=== PATIENT | female | born 1970 | race Caucasian/White ===

== ENCOUNTER 2017-07-26 12:18 | Inpatient (IN) | payer OTHER ==
[2017-07-26 13:25] VITALS: BMI 13.9
--- NOTE | 2017-07-26 16:41 | HP ---
Admission [facility] Chief Complaint: I WANT TO GO TO REHAB Allergies/Adverse Reactions: Allergies Allergy/AdvReac Type Severity Reaction Status Date / Time Penicillins Allergy Severe Rash Verified 07/26/17 14:27 sulfamethoxazole Allergy Severe Itching Verified 07/26/17 14:27 [From Bactrim] trimethoprim [From Bactrim] Allergy Severe Itching Verified 07/26/17 14:27 History of Present Illness: 47 YEARS OLD FEMALE WITH LONG HISTORY OF OPIATE NICOTINE COCAINE DEPENDENCE HAS ASTHMA COPD HIV HEAT RASHES ON UPPER CHEST WALL WEIGHT LOSS AMBULATE WITH CANE AND ANXIETY DISORDER IS ADMITTED TO REHAB Exam Limitations: No Limitations - Ebola screening Have you traveled outside of the country in the last 21 days: No Have you had contact with anyone from an Ebola affected area: No Have you been sick,other than usual withdrawal symptoms: No Do you have a fever: No - Review of Systems Constitutional: Loss of Appetite, Unintentional Wgt. Loss, Unexplained wgt Loss EENT: reports: Blurred Vision (EYE GLASSES AT HOME), Dental Problems (UPPER AND LOWER DENTURE AT HOME) Respiratory: reports: No Symptoms reported Cardiac: reports: No Symptoms Reported GI: reports: Poor Appetite : reports: No Symptoms Reported Musculoskeletal: reports: Muscle Pain (LEGS) Integumentary: reports: Rash (UPPER CHEST WALL) Neuro: reports: No Symptoms reported Endocrine: reports: No Symptoms Reported Hematology: reports: No Symptoms Reported Psychiatric: reports: Judgement Intact, Orientated x3, Anxious Other Systems: Reviewed and Negative Patient History - Patient Medical History Hx Anemia: No Hx Asthma: Yes Hx Chronic Obstructive Pulmonary Disease (COPD): Yes Hx Cancer: No Hx Cardiac Disorders: No Hx Congestive Heart Failure: No Hx Hypertension: No Hx Hypercholesterolemia: No Hx Pacemaker: No HX Cerebrovascular Accident: No Hx Seizures: No Hx Dementia: No Hx Diabetes: No Hx Gastrointestinal Disorders: No Hx Liver Disease: No Hx Genitourinary Disorders: No Hx Sexually Transmitted Disorders: No Hx Renal Disease (ESRD): No Hx Thyroid Disease: No Hx Human Immunodeficiency Virus (HIV): Yes (since 1990 on med) Hx Hepatitis C: Yes (treated) Hx Depression: Yes Hx Suicide Attempt: No Hx Bipolar Disorder: No Hx Schizophrenia: No - Patient Surgical History Past Surgical History: Yes Hx Neurologic Surgery: No Hx Cataract Extraction: No Hx Cardiac Surgery: No Hx Lung Surgery: No Hx Breast Surgery: No Hx Breast Biopsy: No Hx Abdominal Surgery: No Hx Appendectomy: No Hx Cholecystectomy: No Hx Genitourinary Surgery: No Hx Section: Yes (1987 &1989) Hx Orthopedic Surgery: No Hx Hysterectomy: No Other Surgical History: 1990 tubal ligation Anesthesia Reaction: No - PPD History Previous Implant?: Yes Documented Results: Negative w/proof Implanted On Prior [facility] Admission?: Yes Date: 09/22/16 PPD to be Administered?: No - Reproductive History Patient is a Female of Child Bearing Age (11 -55 yrs old): Yes Last Menstrual Period: 07/07/17 Patient : No - Smoking Cessation Smoking history: Current every day smoker Have you smoked in the past 12 months: Yes Aproximately how many cigarettes per day: 3 Cigars Per Day: 0 Hx Chewing Tobacco Use: No Initiated information on smoking cessation: Yes 'Breaking Loose' booklet given: 07/26/17 - Substance & Tx. History Hx Alcohol Use: No Hx Substance Use: Yes Substance Use Type: Heroin Hx Substance Use Treatment: Yes (11/2016 [facility]) - Substances Abused Crack Route: Smoking Frequency: Daily Amount used: $100 Age of first use: 18 Date of Last Use: 07/12/17 Heroin Route: Inhalation Frequency: Daily Amount used: 4-5 bags Age of first use: 21 Date of Last Use: 07/12/17 Family Disease History - Family Disease History Family Disease History: Heart Disease: Mother, Other: Father (NO CONTACT), Brother (HIV) Admission Physical Exam [facility] - Vital Signs Vital Signs: Vital Signs - 24 hr 07/26/17 13:21 Temperature 97.4 F L Pulse Rate 73 Respiratory 20 Rate Blood Pressure 106/77 - Physical General Appearance: Yes: No Apparent Distress, Appropriately Dressed, Thin HEENTM: Yes: Hearing grossly Normal, Normal ENT Inspection, Normocephalic, Normal Voice, Other (MULTIPLE TEETH MISSING) Respiratory: Yes: Chest Non-Tender, No Respiratory Distress, No Accessory Muscle Use, Wheezing, Hyperresonant, Inspiration Neck: Yes: Supple, Trachea in good position Breast: Yes: Breasts Symetrical Cardiology: Yes: Regular Rhythm, Regular Rate, S1, S2 Abdominal: Yes: Normal Bowel Sounds, Non Tender, Soft Genitourinary: Yes: Within Normal Limits Back: Yes: Normal Inspection Musculoskeletal: Yes: full range of Motion, Gait Steady (CANE), Muscle weakness (BOTH LEGS) Extremities: Yes: Normal Inspection, Normal Range of Motion, Non-Tender, Other ( WEAKNESS OF BOTH LEGS) Neurological: Yes: Fully Oriented, Alert, Normal Response, Depressed Affect, Other (WEAKNESS OF BOTH LEGS) Integumentary: Yes: Dry, Warm, Rash (UPPER CHEST WALL), Other (MULTIPLE SKIN ABRASION ON BOTH LEGS) Lymphatic: Yes: Within Normal Limits - Diagnostic (1) Bipolar I disorder Current Visit: Yes Status: Suspected (2) HIV disease Current Visit: Yes Status: Chronic (3) Hepatitis C Current Visit: Yes Status: Chronic Qualifiers: Viral hepatitis chronicity: carrier Qualified Code(s): B18.2 - Chronic viral hepatitis C (4) Nicotine dependence Current Visit: Yes Status: Acute Qualifiers: Nicotine product type: cigarettes Substance use status: in withdrawal Qualified Code(s): F17.213 - Nicotine dependence, cigarettes, with withdrawal (5) Weight decrease Current Visit: Yes Status: Acute (6) Cocaine dependence, uncomplicated Current Visit: Yes Status: Chronic (7) Methadone maintenance therapy patient Current Visit: Yes Status: Chronic Comment: 40 MG VERIFICATION PENDING (8) Asthma Current Visit: Yes Status: Chronic Qualifiers: Asthma severity: mild persistent Asthma complication type: with status asthmaticus Qualified Code(s): J45.32 - Mild persistent asthma with status asthmaticus (9) COPD (chronic obstructive pulmonary disease) Current Visit: Yes Status: Chronic Qualifiers: COPD type: emphysema Emphysema type: unilateral Qualified Code(s ): J43.0 - Unilateral pulmonary emphysema [MacLeod's syndrome] (10) Acneiform rash Current Visit: Yes Status: Chronic (11) Use of cane as ambulatory aid Current Visit: Yes Status: Chronic (12) Muscle spasm Current Visit: Yes Status: Chronic (13) Dry skin Current Visit: Yes Status: Chronic (14) Abrasion of skin Current Visit: Yes Status: Acute Comment: LOWER EXTREMITIES Cleared for Admission S - Detox or Rehab [facility] Level of Care: Observation Bed Detox Regimen/Protocol: Not Applicable Claeared for Rehab Admission: Yes [facility] Breath Alcohol Content Breath Alcohol Content: 0 Urine Pregancy Test - Result Urine Test Results: Negative- NO Line Present Urine Drug Screen - Control Is Test Valid: Yes - Results Drug Screen Negative: No Urine Drug Screen Results: MTD-Methadone Inpatient Rehab Admission - Initial Determination Are CD services needed?: Yes Free of communicable disease: Yes Not in need of hospitalization: Yes - Rehab Admission Criteria Previous failed treatment: Yes Poor recovery environment: Yes Comorbidities: Yes Lacks judgement: No Patient is meeting Inpatient Rehab admission criteria:: Yes
[2017-07-26] MEDS ORDERED: MAGNESIUM HYDROX 2400MG/30ML ORAL SUSPENSION 30 ML CUP PO PRN (16:47)
[2017-07-26] MEDS ORDERED: ACETAMINOPHEN 325 MG TABLET (FP) PO PRN (16:47)
[2017-07-26] MEDS ORDERED: MENTHOL/PHENOL 1 EACH UD MM PRN (16:47)
[2017-07-26] MEDS ORDERED: MAGNESIUM CITRATE 300 ML BOTTLE PO PRN (16:47)
[2017-07-26] MEDS ORDERED: guaiFENesin/D-METHORPHAN HB 10 ML UNIT-DOSE CUPS PO PRN (16:47)
[2017-07-26] MEDS ORDERED: IBUPROFEN 400 MG TABLET (FP) PO PRN (16:47)
[2017-07-26] MEDS ORDERED: diphenhydrAMINE HCL 50 MG CAPSULE PO PRN (16:47)
[2017-07-26] MEDS ORDERED: MAG HYDROX/AL HYDROX/SIMETH 30 ML UNIT-DOSE CUP PO PRN (16:47)
[2017-07-26] MEDS ORDERED: P-EPHED 60MG/TRIPROLIDI 2.5MG TABLET PO PRN (16:47)
[2017-07-26] MEDS ORDERED: ALBUTEROL SO4 6.7 GM HFA INHALER IH PRN (16:48)
[2017-07-26] MEDS ORDERED: ALBUTEROL SO4 2.5/IPRATROPIUM 0.5 INH SOL 3 ML VIAL.NEB. NEB PRN (16:48)
[2017-07-26] MEDS ORDERED: COLLOIDAL OATMEAL 1 BAR EACH TP PRN (16:49)
[2017-07-26] MEDS ORDERED: BACITRACIN 0.9 GM PACKET TP ONE (17:15)
[2017-07-26] MEDS: hydrOXYzine PAMOATE 50 MG CAPSULE (FP) PO PRN (19:24)
[2017-07-26] MEDS ORDERED: PT OWN MED DRAWER 7, Y5N ONE (20:26)
[2017-07-26] MEDS: MIRTAZAPINE 30 MG TABLET (FP) PO SCH (21:47)
[2017-07-26] MEDS: THIAMINE HCL 100 MG TABLET (FP) PO SCH (21:47)
[2017-07-26] MEDS: HYDROCORTISONE 1% TOPICAL CREAM 30 GM TUBE TP SCH ×2 (21:48→22:40)
[2017-07-26] MEDS: MINERAL OIL/PETROLAT/WATER TOPICAL CREAM 113 GM JAR TP SCH (21:48)
[2017-07-26] MEDS: FLUOCINONIDE 0.05% CREAM (15 GM TUBE) TP SCH (21:49)
[2017-07-26] MEDS: BUDESONIDE/FORMETEROL FUMARATE 80/4.5 mcg INHALER IH SCH (21:50)
[2017-07-26] MEDS: CLOTRIMAZOLE 1% VAGINAL CREAM WITH APPLICATOR 45 GM TUBE VG SCH (21:50)
[2017-07-26] MEDS: CYCLOBENZAPRINE HCL 10 MG TABLET (FP) PO SCH (22:40)
[2017-07-26 23:30] LABS: URINE APPEARANCE CLOUDY; URINE BILIRUBIN NEGATIVE (NEGATIVE); URINE BLOOD NEGATIVE (NEGATIVE); URINE COLOR DKYELLOW; URINE GLUCOSE (UA) NEGATIVE (NEGATIVE); URINE KETONE NEGATIVE (NEGATIVE); URINE LEUK ESTERASE 3+ (NEGATIVE); URINE NITRITE NEGATIVE (NEGATIVE); URINE PROTEIN NEGATIVE (NEGATIVE)
[2017-07-26 23:39] LABS: URINE MUCUS RARE; URINE RBC 6 /hpf (0-3); URINE WBC 84 /hpf (3-5); YEAST RARE
[2017-07-27] MEDS ORDERED: PT OWN MED DRAWER 7, Y5N ONE ×4 (06:03→23:11)
[2017-07-27] MEDS: CYCLOBENZAPRINE HCL 10 MG TABLET (FP) PO SCH ×3 (06:54→21:23)
[2017-07-27] MEDS: FLUOCINONIDE 0.05% CREAM (15 GM TUBE) TP SCH ×3 (06:54→21:26)
[2017-07-27] MEDS: PRENATAL VITAMINS W/ FOLIC ACID TABLET (FP) PO SCH (10:00)
[2017-07-27] MEDS: DAPSONE 100 MG TABLET PO SCH (10:01)
[2017-07-27] MEDS: FLUTICASONE PROP 0.05% 16 GM NASAL SPRAY NS SCH (10:01)
[2017-07-27] MEDS: NICOTINE 14 MG/24 HOURS TOPICAL PATCH TD SCH (10:02)
[2017-07-27] MEDS: HYDROCORTISONE 1% TOPICAL CREAM 30 GM TUBE TP SCH ×4 (10:02→21:25)
[2017-07-27] MEDS: BUDESONIDE/FORMETEROL FUMARATE 80/4.5 mcg INHALER IH SCH ×2 (10:03→21:24)
[2017-07-27 10:40] LABS: MCHC 33.5 g/dl (32.0-36.0); MEAN CELL VOLUME 86.4 fl (80-96); MEAN PLT VOLUME 9.7 fl (7.5-11.1); PLATELET COUNT 197 K/MM3 (134-434); RDW 13.4 % (11.6-15.6); WHITE BLOOD COUNT 4.9 K/mm3 (4.0-10.0)
[2017-07-27] MEDS: METHADONE HCL 40 MG DISPERSABLE TABLET PO SCH (10:50)
[2017-07-27 10:51] LABS: ALBUMIN 3.3 g/dl (3.4-5.0); ANION GAP 5 (8-16); CALCIUM 8.8 mg/dL (8.5-10.1); CO2 30 mmol/L (21-32); CREATININE 0.8 mg/dL (0.55-1.02); GLUCOSE,RANDOM 100 mg/dL (74-106); SGOT/AST 22 U/L (15-37); SGPT/ALT 26 U/L (12-78)
[2017-07-27 10:52] LABS: ALK PHOS 94 U/L (45-117); BILIRUBIN,TOTAL 0.3 mg/dL (0.2-1.0); TOT PROT 8.4 g/dl (6.4-8.2)
[2017-07-27] MEDS: MIRTAZAPINE 30 MG TABLET (FP) PO SCH (21:23)
[2017-07-27] MEDS: THIAMINE HCL 100 MG TABLET (FP) PO SCH (21:23)
[2017-07-27] MEDS: MINERAL OIL/PETROLAT/WATER TOPICAL CREAM 113 GM JAR TP SCH (21:25)
[2017-07-27] MEDS: BACITRACIN 0.9 GM PACKET TP SCH (21:26)
[2017-07-27] MEDS: CLOTRIMAZOLE 1% VAGINAL CREAM WITH APPLICATOR 45 GM TUBE VG SCH (21:27)
[2017-07-28] MEDS: FLUOCINONIDE 0.05% CREAM (15 GM TUBE) TP SCH ×3 (06:27→21:34)
[2017-07-28] MEDS: CYCLOBENZAPRINE HCL 10 MG TABLET (FP) PO SCH ×3 (06:28→21:31)
[2017-07-28] MEDS: METHADONE HCL 40 MG DISPERSABLE TABLET PO SCH (06:28)
[2017-07-28] MEDS: NICOTINE 14 MG/24 HOURS TOPICAL PATCH TD SCH (09:50)
[2017-07-28] MEDS: PRENATAL VITAMINS W/ FOLIC ACID TABLET (FP) PO SCH (09:50)
[2017-07-28] MEDS: DAPSONE 100 MG TABLET PO SCH (09:50)
[2017-07-28] MEDS: FLUTICASONE PROP 0.05% 16 GM NASAL SPRAY NS SCH (09:51)
[2017-07-28] MEDS: BACITRACIN 0.9 GM PACKET TP SCH ×4 (09:51→21:31)
[2017-07-28] MEDS: BUDESONIDE/FORMETEROL FUMARATE 80/4.5 mcg INHALER IH SCH ×2 (09:52→21:34)
[2017-07-28] MEDS: HYDROCORTISONE 1% TOPICAL CREAM 30 GM TUBE TP SCH ×4 (09:52→21:33)
[2017-07-28] MEDS ORDERED: PT OWN MED DRAWER 7, Y5N ONE (12:22)
[2017-07-28] MEDS: THIAMINE HCL 100 MG TABLET (FP) PO SCH (21:31)
[2017-07-28] MEDS: MIRTAZAPINE 30 MG TABLET (FP) PO SCH (21:31)
[2017-07-28] MEDS: MINERAL OIL/PETROLAT/WATER TOPICAL CREAM 113 GM JAR TP SCH (21:32)
[2017-07-28] MEDS: CLOTRIMAZOLE 1% VAGINAL CREAM WITH APPLICATOR 45 GM TUBE VG SCH (21:32)
[2017-07-29] MEDS ORDERED: PT OWN MED DRAWER 7, Y5N ONE ×3 (03:35→09:40)
[2017-07-29] MEDS: METHADONE HCL 40 MG DISPERSABLE TABLET PO SCH (06:36)
[2017-07-29] MEDS: FLUOCINONIDE 0.05% CREAM (15 GM TUBE) TP SCH ×3 (06:37→21:32)
[2017-07-29] MEDS: CYCLOBENZAPRINE HCL 10 MG TABLET (FP) PO SCH ×3 (06:37→21:31)
[2017-07-29] MEDS: LOPERAMIDE HCL 2 MG CAPSULE PO PRN (06:38)
[2017-07-29] MEDS: PRENATAL VITAMINS W/ FOLIC ACID TABLET (FP) PO SCH (09:32)
[2017-07-29] MEDS: DAPSONE 100 MG TABLET PO SCH (09:32)
[2017-07-29] MEDS: BUDESONIDE/FORMETEROL FUMARATE 80/4.5 mcg INHALER IH SCH ×2 (09:33→21:31)
[2017-07-29] MEDS: HYDROCORTISONE 1% TOPICAL CREAM 30 GM TUBE TP SCH ×4 (09:33→21:33)
[2017-07-29] MEDS: NICOTINE 14 MG/24 HOURS TOPICAL PATCH TD SCH (09:33)
[2017-07-29] MEDS: FLUTICASONE PROP 0.05% 16 GM NASAL SPRAY NS SCH (09:33)
[2017-07-29] MEDS: BACITRACIN 0.9 GM PACKET TP SCH ×4 (09:33→21:32)
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
--- NOTE | 2017-07-29 17:02 | EKG ---
Test Reason : Blood Pressure : / mmHG Vent. Rate : 063 BPM Atrial Rate : 063 BPM P-R Int : 150 ms QRS Dur : 068 ms QT Int : 398 ms P-R-T Axes : 073 032 066 degrees QTc Int : 407 ms NORMAL SINUS RHYTHM NORMAL ECG NO PREVIOUS ECGS AVAILABLE Confirmed by PRETTY GOER MD ([id number]) on 07/29/2017 5:02:19 PM Referred By: Minoo Peters Confirmed By:PRETTY GORE MD
[2017-07-29] MEDS: MIRTAZAPINE 30 MG TABLET (FP) PO SCH (21:31)
[2017-07-29] MEDS: THIAMINE HCL 100 MG TABLET (FP) PO SCH (21:31)
[2017-07-29] MEDS: MINERAL OIL/PETROLAT/WATER TOPICAL CREAM 113 GM JAR TP SCH (21:32)
[2017-07-29] MEDS: CLOTRIMAZOLE 1% VAGINAL CREAM WITH APPLICATOR 45 GM TUBE VG SCH (21:33)
[2017-07-30] MEDS: LOPERAMIDE HCL 2 MG CAPSULE PO PRN (01:57)
[2017-07-30] MEDS: METHADONE HCL 40 MG DISPERSABLE TABLET PO SCH (06:10)
[2017-07-30] MEDS: CYCLOBENZAPRINE HCL 10 MG TABLET (FP) PO SCH ×3 (06:10→21:00)
[2017-07-30] MEDS: FLUOCINONIDE 0.05% CREAM (15 GM TUBE) TP SCH ×3 (06:39→21:00)
[2017-07-30] MEDS ORDERED: PT OWN MED DRAWER 7, Y5N ONE (08:43)
[2017-07-30] MEDS: FLUTICASONE PROP 0.05% 16 GM NASAL SPRAY NS SCH (10:02)
[2017-07-30] MEDS: BUDESONIDE/FORMETEROL FUMARATE 80/4.5 mcg INHALER IH SCH ×2 (10:02→20:59)
[2017-07-30] MEDS: DAPSONE 100 MG TABLET PO SCH (10:03)
[2017-07-30] MEDS: BACITRACIN 0.9 GM PACKET TP SCH ×4 (10:03→20:59)
[2017-07-30] MEDS: PRENATAL VITAMINS W/ FOLIC ACID TABLET (FP) PO SCH (10:03)
[2017-07-30] MEDS: NICOTINE 14 MG/24 HOURS TOPICAL PATCH TD SCH (10:06)
[2017-07-30] MEDS: NICOTINE POLACRILEX 2 MG GUM BC PRN (10:06)
[2017-07-30] MEDS: HYDROCORTISONE 1% TOPICAL CREAM 30 GM TUBE TP SCH ×4 (10:06→20:59)
--- NOTE | 2017-07-30 10:17 | PN ---
[facility] Progress Note Note: Pt. has an abscess on rt. side of sternum close to rt. breast. She has been applying bacitracin oin't Vital Signs 07/30/17 06:44 Temperature 97.9 F Pulse Rate 76 Respiratory 16 Rate Blood Pressure 109/71 Laboratory Tests 07/26/17 07/27/17 07/27/17 21:54 08:00 08:00 WBC 4.9 RBC 4.58 Hgb 13.3 Hct 39.6 MCV 86.4 MCH 29.0 MCHC 33.5 RDW 13.4 D Plt Count 197 D MPV 9.7 D Sodium 137 Potassium 4.2 Chloride 102 Carbon Dioxide 30 Anion Gap 5 L BUN 14 D Creatinine 0.8 Creat Clearance w eGFR > 60 Random Glucose 100 D Calcium 8.8 Total Bilirubin 0.3 AST 22 D ALT 26 D Alkaline Phosphatase 94 Total Protein 8.4 H Albumin 3.3 L Urine Color Dkyellow Urine Appearance Cloudy Urine pH 7.0 Ur Specific [place] 1.020 Urine Protein Negative Urine Glucose (UA) Negative Urine Ketones Negative Urine Blood Negative Urine Nitrite Negative Urine Bilirubin Negative Urine Urobilinogen 2.0 H Urine RBC 6 Urine WBC 84 Ur Epithelial Cells Rare Urine Mucus Rare Urine Yeast Rare RPR Titer 07/27/17 08:00 WBC RBC Hgb Hct MCV MCH MCHC RDW Plt Count MPV Sodium Potassium Chloride Carbon Dioxide Anion Gap BUN Creatinine Creat Clearance w eGFR Random Glucose Calcium Total Bilirubin AST ALT Alkaline Phosphatase Total Protein Albumin Urine Color Urine Appearance Urine pH Ur Specific [place] Urine Protein Urine Glucose (UA) Urine Ketones Urine Blood Urine Nitrite Urine Bilirubin Urine Urobilinogen Urine RBC Urine WBC Ur Epithelial Cells Urine Mucus Urine Yeast RPR Titer Nonreactive Dx. : Abscess on chest wall P : Levaquin 500mg x 7 days
[2017-07-30] MEDS: LEVOFLOXACIN 500 MG TABLET (FP) PO SCH (10:44)
[2017-07-30] MEDS: hydrOXYzine PAMOATE 50 MG CAPSULE (FP) PO PRN ×2 (13:06→17:25)
[2017-07-30] MEDS: MIRTAZAPINE 30 MG TABLET (FP) PO SCH (21:00)
[2017-07-30] MEDS: THIAMINE HCL 100 MG TABLET (FP) PO SCH (21:00)
[2017-07-30] MEDS: CLOTRIMAZOLE 1% VAGINAL CREAM WITH APPLICATOR 45 GM TUBE VG SCH (21:02)
[2017-07-30] MEDS: MINERAL OIL/PETROLAT/WATER TOPICAL CREAM 113 GM JAR TP SCH (21:02)
[2017-07-31] MEDS: CYCLOBENZAPRINE HCL 10 MG TABLET (FP) PO SCH ×2 (06:22→13:31)
[2017-07-31] MEDS: METHADONE HCL 40 MG DISPERSABLE TABLET PO SCH (06:22)
[2017-07-31] MEDS: LEVOFLOXACIN 500 MG TABLET (FP) PO SCH (06:22)
[2017-07-31] MEDS: FLUOCINONIDE 0.05% CREAM (15 GM TUBE) TP SCH ×2 (07:06→13:31)
[2017-07-31 07:12] VITALS: BP 125/76; PULSE 66; TEMP 97.8
[2017-07-31] MEDS: PRENATAL VITAMINS W/ FOLIC ACID TABLET (FP) PO SCH (10:06)
[2017-07-31] MEDS: DAPSONE 100 MG TABLET PO SCH (10:06)
[2017-07-31] MEDS: BACITRACIN 0.9 GM PACKET TP SCH ×2 (10:06→13:31)
[2017-07-31] MEDS: FLUTICASONE PROP 0.05% 16 GM NASAL SPRAY NS SCH (10:07)
[2017-07-31] MEDS: HYDROCORTISONE 1% TOPICAL CREAM 30 GM TUBE TP SCH ×2 (10:07→13:31)
[2017-07-31] MEDS: NICOTINE 14 MG/24 HOURS TOPICAL PATCH TD SCH (10:07)
[2017-07-31] MEDS: BUDESONIDE/FORMETEROL FUMARATE 80/4.5 mcg INHALER IH SCH (10:07)
[2017-07-31] MEDS: hydrOXYzine PAMOATE 50 MG CAPSULE (FP) PO PRN (10:09)
[2017-07-31] MEDS: NICOTINE POLACRILEX 2 MG GUM BC PRN (10:09)
[2017-07-31] MEDS ORDERED: PT OWN MED DRAWER 7, Y5N ONE (12:05)
--- NOTE | 2017-07-31 14:38 | PN ---
Psychiatric Progress Note Vital Signs: Vital Signs Period Temp Pulse Resp BP Sys/Garcia Pulse Ox Last 24 Hr 97.8 F 66 18 125/76 Date of Session: 07/31/17 Chief Complaint:: Discharge visit. HPI: Opioid,Cocaine dependence comorbid with Bipolar disorder. ROS: HIV+,COPD,BA,Neuropathy. Current Medications: Active Medications Generic Name Dose Route Start Last Admin Trade Name Freq PRN Reason Stop Dose Admin Acetaminophen 650 mg 07/26/17 16:47 Tylenol - PO Q4H PRN PAIN Al Hydroxide/Mg Hydroxide 30 ml 07/26/17 16:47 Mylanta Oral Suspension - PO Q6H PRN DYSPEPSIA Albuterol Sulfate 2 puff 07/26/17 16:48 Ventolin Hfa Inhaler - IH Q4H PRN SHORT OF BREATH/WHEEZING Bacitracin 0.9 gm 07/27/17 22:00 07/31/17 13:31 Bacitracin - TP 0.9 gm QID TARUN Administration Budesonide/Formoterol Fumarate 2 puff 07/26/17 22:00 07/31/17 10:07 Symbicort 80/4.5mcg - IH 2 inhaler BID TARUN Administration Bupropion HCl 150 mg 07/27/17 10:00 07/31/17 10:06 Wellbutrin Xl - PO 150 mg DAILY TARUN Administration Clotrimazole 1 applic 07/26/17 22:00 07/30/17 21:02 Gyne-Lotrimin - VG 07/31/17 21:59 1 applic HS TARUN Administration Colloidal Oatmeal 1 applic 07/26/17 16:49 07/26/17 18:24 Aveeno Soap - TP 1 applic DAILY PRN Administration HYGEINE Cyclobenzaprine HCl 10 mg 07/26/17 22:00 07/31/17 13:31 Flexeril - PO 10 mg TID TARUN Administration Dapsone 100 mg 07/27/17 10:00 07/31/17 10:06 Dapsone - PO 100 mg DAILY TARUN Administration Diphenhydramine HCl 50 mg 07/26/17 16:47 Benadryl - PO HSMR1 PRN INSOMNIA Eucalyptus/Menthol/Phenol/Sorbitol 1 each 07/26/17 16:47 Cepastat Lozenge - MM Q4H PRN SORE THROAT Fluocinonide 1 applic 07/26/17 22:00 07/31/17 13:31 Lidex 0.05% Cream - TP Not Given TID [facility] Fluticasone Propionate 1 spray 07/27/17 10:00 07/31/17 10:07 Flonase - NS 1 spray DAILY TARUN Administration Guaifenesin 10 ml 07/26/17 16:47 Robitussin Dm - PO Q6H PRN COUGH Hydrocortisone 1 applic 07/26/17 18:00 07/31/17 13:31 Hytone 1% Cream - TP Not Given QID TARUN Hydroxyzine Pamoate 50 mg 07/26/17 16:47 07/31/17 10:09 Vistaril - PO 50 mg Q4H PRN Administration AGITATION Ibuprofen 400 mg 07/26/17 16:47 Motrin - PO Q6H PRN SEVERE PAIN Levofloxacin 500 mg 07/30/17 10:15 07/31/17 06:22 Levaquin - PO 500 mg DAILY@0600 [facility] Administration Loperamide HCl 4 mg 07/26/17 16:47 07/30/17 01:57 Imodium - PO 4 mg Q6H PRN Administration DIARRHEA Magnesium Citrate 300 ml 07/26/17 16:47 Citroma - PO Q48H PRN CONSTIPATION Magnesium Hydroxide 30 ml 07/26/17 16:47 Milk Of Magnesia - PO DAILY PRN CONSTIPATION Methadone HCl 40 mg 07/27/17 09:15 07/31/17 06:22 Dolophine - PO 40 mg DAILY@0600 [facility] Administration Mirtazapine 30 mg 07/26/17 22:00 07/30/17 21:00 Remeron - PO 30 mg HS [facility] Administration Multi-Ingredient Lotion 1 applic 07/26/17 22:00 07/30/17 21:02 Eucerin (Small Jar) - TP Not Given HS [facility] Nicotine 14 mg 07/27/17 10:00 07/31/17 10:07 Nicoderm Patch - TD Not Given DAILY [facility] Nicotine Polacrilex 2 mg 07/26/17 16:47 07/31/17 10:09 Nicorette Gum - BC 2 mg Q2H PRN Administration NICOTINE REPLACEMENT RX Non-Formulary Medication 1 each 07/27/17 10:00 07/31/17 10:06 Abacavir/Dolutegravir/Lamivudi [Triumeq Tablet] PO 1 each DAILY TARUN Administration Multivit/Folic Acid/Iron 1 tab 07/27/17 10:00 07/31/17 10:06 Vitamins (Sjr) - PO 1 tab DAILY TARUN Administration Pseudoephedrine/Triprolidine 1 combo 07/26/17 16:47 07/29/17 01:58 Actifed - PO 1 combo TID PRN Administration NASAL CONGESTION Thiamine HCl 100 mg 07/26/17 22:00 07/30/17 21:00 Vitamin B1 - PO 100 mg HS TARUN Administration Current Side Effect: No Lab tests ordered: No Lab tests reviewed: Yes Provider note:: Chart was revuewed,patient was evaluated due to her decision to sign out toeday.Patient didnt give any serious reasons to interrupt treatment and leave the program today.She didnt meet her treatment goals and will continue to address her issues on outpatient basis.Patient reports finding current medications:Remeron 30 mg po hs and Wellbutrin XL 150 mg po am help to cope with mood instability,depression ,insomnia.Scripts for 30 days provided. Supportive therapy provided focusing on coping skills ,support utilization to maintain recovery. Total face to face time:: 30 Mental Status Exam - Mental Status Exam Alert and Oriented to: Time, Place, Person Cognitive Function: Grossly Intact Patient Appearance: Unkempt Mood: Irritable Affect: Labile Patient Behavior: Restless, Distractible, Resitive to Care Speech Pattern: Clear Voice Loudness: Normal Thought Process: Goal Oriented Thought Disorder: Not Present Hallucinations: Denies Suicidal Ideation: Denies Homicidal Ideation: Denies Insight/Judgement: Impaired Sleep: Fair Appetite: Good Muscle strength/Tone: Normal Gait/Station: Normal Psychiatric Treatment Plan - Problem List (1) Nicotine dependence Current Visit: Yes Qualifiers: Nicotine product type: cigarettes Substance use status: in withdrawal Qualified Code(s): F17.213 - Nicotine dependence, cigarettes, with withdrawal (2) Weight decrease Current Visit: Yes (3) Asthma Current Visit: Yes Qualifiers: Asthma severity: mild persistent Asthma complication type: with status asthmaticus Qualified Code(s): J45.32 - Mild persistent asthma with status asthmaticus (4) COPD (chronic obstructive pulmonary disease) Current Visit: Yes Qualifiers: COPD type: emphysema Emphysema type: unilateral Qualified Code(s ): J43.0 - Unilateral pulmonary emphysema [MacLeod's syndrome] (5) Cocaine dependence, uncomplicated Current Visit: Yes (6) Bipolar disorder Current Visit: Yes (7) Cocaine dependence Current Visit: Yes (8) HIV (human immunodeficiency virus infection) Current Visit: No (9) Neuropathy Current Visit: No (10) Opioid dependence Current Visit: No
== END 2017-07-31 13:15 | disposition left against medical advice (07) | DRG 770 ==
LOC: YASAS 12:18 → Y3E 15:07
PROVIDERS: ADMIT Psychiatry & Neurology Psychiatry; ATTEND Psychiatry & Neurology Psychiatry
PROC: HZ42ZZZ Group Counseling for Substance Abuse Treatment, Cognitive-Behavioral (ICD-10-PCS; principal; 2017-07-26)
DX: F11.20 Opioid dependence, uncomplicated (principal); F14.20 Cocaine dependence, uncomplicated; F17.210 Nicotine dependence, cigarettes, uncomplicated; F31.9 Bipolar disorder, unspecified; B18.2 Chronic viral hepatitis C; J45.32 Mild persistent asthma with status asthmaticus; J43.0 Unilateral pulmonary emphysema [MacLeod's syndrome]; G62.9 Polyneuropathy, unspecified; Z21 Asymptomatic human immunodeficiency virus [HIV] infection status; L85.3 Xerosis cutis; M62.838 Other muscle spasm; L70.8 Other acne; R26.89 Other abnormalities of gait and mobility; Z99.89 Dependence on other enabling machines and devices; R63.4 Abnormal weight loss; Z68.1 Body mass index [BMI] 19.9 or less, adult
CPT/HCPCS: 36415; 80053; 81003; 81015; 85027; 86593; 93005; 93010